=== PATIENT | male | born 1970 | race Caucasian/White ===

== ENCOUNTER 2019-06-18 21:13 | Emergency (ER) | payer OTHER ==
[2019-06-18 21:33] VITALS: BP 135/89
--- NOTE | 2019-06-18 22:17 | ER Document Report ---
ED Medical Screen (RME) - General Chief Complaint: Finger Injury Stated Complaint: FINGER LACERATION Time Seen by Provider: 06/18/19 22:11 Notes: Patient is a 48-year-old male who presents the emergency department with a laceration to his right distal second digit. Patient states that he was slicing carrots and sliced his finger on the slicer. Patient is up-to-date on his tetanus vaccine. Exam: Small laceration noted to right second digit at the tip of the finger. Small amount of bleeding noted. I have greeted and performed a rapid initial assessment of this patient. A comprehensive ED assessment and evaluation of the patient, analysis of test results and completion of medical decision making process will be conducted by an additional ED providers. - Related Data Allergies/Adverse Reactions: No Known Allergies Allergy (Verified 06/18/19 22:18) Physical Exam - Vital signs Vitals: Temp Pulse Resp BP Pulse Ox 98.1 F 73 16 135/89 H 100 06/18/19 21:31 06/18/19 21:31 06/18/19 21:31 06/18/19 21:31 06/18/19 21:31 Course - Vital Signs Vital signs: Temp Pulse Resp BP Pulse Ox 98.1 F 73 16 135/89 H 100 06/18/19 21:31 06/18/19 21:31 06/18/19 21:31 06/18/19 21:31 06/18/19 21:31
[2019-06-18] MEDS ORDERED: LIDOCAINE 1% INJ-PF (10 MG/ML) 30 ML SDV INJ ONE (22:20)
[2019-06-19] MEDS ORDERED: LIDOCAINE 1% INJ-PF (10 MG/ML) 30 ML SDV ONE (00:59)
[2019-06-19] MEDS ORDERED: CEPHALEXIN 500 MG CAPSULE PO ONE (01:04)
--- NOTE | 2019-06-19 01:06 | ER Document Report ---
HPI - HPI Time Seen by Provider: 06/18/19 22:11 Pain Level: 4 Context: Patient is a 48-year-old male that comes emergency department for chief complaint of a laceration to his right index finger over the fingertip. He states he was using a carrot cutter when he accidentally cut himself. He states this stopped bleeding quickly with pressure and has not bled since. He denies any other injuries. Tetanus is up-to-date within 5 years. He denies history of diabetes. He denies any other complaints. Past Medical History - General Information source: Patient - Social History Smoking Status: Never Smoker Frequency of alcohol use: None Drug Abuse: None Lives with: Family Family History: Reviewed & Not Pertinent Patient has suicidal ideation: No Patient has homicidal ideation: No - Medical History Medical History: Negative Surgical Hx: Negative - Immunizations Immunizations up to date: Yes Hx Diphtheria, Pertussis, Tetanus Vaccination: Yes Vertical Provider Document - CONSTITUTIONAL General Appearance: WD/WN, No Apparent Distress - INFECTION CONTROL TRAVEL OUTSIDE OF THE [place] IN LAST 30 DAYS: No - HEENT HEENT: Atraumatic, Normocephalic - NECK Neck: Normal Inspection - RESPIRATORY Respiratory: Breath Sounds Normal, No Respiratory Distress - CARDIOVASCULAR Cardiovascular: Regular Rate, Regular Rhythm - GI/ABDOMEN Gastrointestinal: Abdomen Soft, Abdomen Non-Tender - BACK Back: Normal Inspection - MUSCULOSKELETAL/EXTREMETIES Musculoskeletal/Extremeties: MAEW, FROM, Tender - Patient is a very small 0.5 cm laceration over the right index fingertip. This does not extend to the DIP joint or the fingernail. This appears to be a tiny superficial flap. Normal capillary refill and sensation. Unremarkable otherwise with normal range of motion of all fingers, normal hand exam, normal neurovascular exam - NEURO Level of Consciousness: Awake, Alert, Appropriate Motor/Sensory: No Motor Deficit, No Sensory Deficit Course - Re-evaluation Re-evalutation: Patient has a very superficial flap laceration which appears to be already healing down. No current bleeding. No neurovascular deficits or concerning injuries. Patient refuses sutures and is requesting Dermabond. He has had Dermabond for similar wounds in the past. Because it is so small and superficial patient was provided with Dermabond but was also provided with antibiotics as a result. Discussed care, follow-up, return precautions. Patient states understanding and agreement. - Vital Signs Vital signs: Temp Pulse Resp BP Pulse Ox 98.1 F 73 16 135/89 H 100 06/18/19 21:31 06/18/19 21:31 06/18/19 21:31 06/18/19 21:31 06/18/19 21:31 Procedures - Laceration/Wound Repair Right index fingertip Wound length (cm): 0.5 Wound's Depth, Shape: Superficial Laceration pre-procedure: Sterile PPE donned, Sterile drapes applied, Shur-Clens applied Wound explored: Clean, No foreign body removed Wound Repaired With: Dermabond Layer Closure?: No Post-procedure NV exam normal: Yes Complications: No Discharge - Discharge Clinical Impression: Laceration of right index finger Qualifiers: Encounter type: initial encounter Damage to nail status: without damage Foreign body presence: without foreign body Qualified Code(s): S61.210A - Laceration without foreign body of right index finger without damage to nail, initial encounter Condition: Stable Disposition: HOME, SELF-CARE Additional Instructions: The wound has been closed with Dermabond, this will protect the area, this should fall off in about 5-7 days on its own. You can clean the area but avoid soaking or scrubbing the area. If the dermabond has not come off on its own after a week you can remove this by applying a topical antibiotic. Follow-up with primary care. Take the antibiotics as prescribed. Return for any concerning symptoms including signs of infection such as pain, developing redness, fever, or any other concerning or worsening symptoms. Prescriptions: Cephalexin Monohydrate [Keflex 500 mg Capsule] 500 mg PO TID 5 Days #15 capsule
== END 2019-06-19 01:25 | disposition home or self-care (01) ==
LOC: ER 21:13
DX: S61.210A Laceration without foreign body of right index finger without damage to nail, initial encounter (principal); W26.8XXA Contact with other sharp object(s), not elsewhere classified, initial encounter; Y93.G9 Activity, other involving cooking and grilling
CPT/HCPCS: 99282